=== PATIENT | male | born 1960 | race Caucasian/White ===

== ENCOUNTER → 2018-03-13 | Outpatient (CLI) | payer MEDICARE ==
[~2018-03-13] MED LIST: CYCL10TA45 PO; HYDR-3454 PO; HYDR-3816 PO; METR500T PO
--- NOTE | 2018-03-13 13:33 | Diagnostic Imaging Report ---
CLINICAL INDICATION: Patient with transient vision loss in the right eye. COMPARISON: None. EXAM: Real-time carotid Doppler duplex imaging is performed bilaterally. Peak systolic velocity, ICA/CCA peak systolic ratio, spectral analysis, and vascular morphology are studied. FINDINGS: ARTERY VELOCITY Right Left CCA 1.09 m/s 1.22 m/s ICA 1.08 m/s 0.95 m/s ECA 1.49 m/s 1.05 m/s ICA/CCA 1.0 0.8 VERT.ART Antegrade Antegrade There is mild atherosclerotic disease involving the bilateral carotid arteries with no grayscale evidence of significant stenosis. Although, there is elevated velocities within the right ECA, there is no grayscale evidence of stenosis seen in the region. IMPRESSION: 1: There are elevated velocities within the right ECA with no grayscale evidence of stenosis. 2: Otherwise, there is mild bilateral carotid artery atherosclerotic disease. No grayscale or Doppler evidence of significant vascular stenosis. Dictated by: Dictated on workstation # [id number]
== END ==
LOC: RAD 12:50
PROVIDERS: ATTEND Family Medicine
DX: I65.23 Occlusion and stenosis of bilateral carotid arteries (principal); H53.121 Transient visual loss, right eye
CPT/HCPCS: 93880

== ENCOUNTER → 2019-06-18 | Outpatient (CLI) | payer MEDICARE ==
--- NOTE | 2019-06-18 09:59 | Diagnostic Imaging Report ---
PROCEDURE: MRI lumbar spine. TECHNIQUE: Multiplanar, multisequence MRI of the lumbar spine was performed without contrast. INDICATION: Chronic low back pain. FINDINGS: The alignment of the lumbar spine is normal. Vertebral body heights are well-maintained. There is no spondylolysis or spondylolisthesis. No fractures are identified. Conus medullaris is seen at L1. The patient has a congenitally small spinal canal. At T12-L1 there is no spinal or neural foraminal encroachment. At L1-L2 there is mild facet disease and some minimal annular bulging. There is very slight effacement of the ventral thecal sac and no significant neural foraminal encroachment. At L2-L3 there is some annular bulging, facet disease and thickening of the ligamentum flavum. There is mild central spinal stenosis and very minimal neural foraminal encroachment. At L3-L4 there is loss of disc height and signal intensity. There is some annular bulging, facet disease and thickening of the ligamentum flavum. There is moderate spinal stenosis with some encroachment upon the lateral recess bilaterally. There is mild bilateral neural foraminal encroachment. At L4-L5 there is loss of disc height and signal intensity. There are Modic changes in the endplates. There is annular bulging, facet disease and thickening of the ligamentum flavum. There is severe central spinal stenosis with marked encroachment upon the lateral recess bilaterally. There is moderately severe right and moderate left neural foraminal encroachment. At L5-S1 there is broad-based annular bulging and facet disease. There is marked encroachment upon the left lateral recess. There is mild right and moderately severe left neural foraminal encroachment. The aorta is nonaneurysmal. Kidneys are normal in appearance. IMPRESSION: Lower lumbar spondylosis and multilevel degenerative disc disease as detailed above. Dictated by: Dictated on workstation # [id number]
== END ==
LOC: RAD 07:52
PROVIDERS: ATTEND Family Medicine
DX: M47.816 Spondylosis without myelopathy or radiculopathy, lumbar region (principal); M51.26 Other intervertebral disc displacement, lumbar region; M51.36 Other intervertebral disc degeneration, lumbar region
CPT/HCPCS: 72148

== ENCOUNTER → 2019-06-29 | Outpatient (CLI) | payer MEDICARE ==
--- NOTE | 2019-06-29 12:01 | Diagnostic Imaging Report ---
EXAMINATION: Right lower extremity arterial Doppler. INDICATION: Numbness and tingling in right foot. TECHNIQUE: Spectral and color-flow imaging of the arterial system of the right lower extremity was performed. COMPARISON: There are no prior studies available for comparison. FINDINGS: There is fairly good arterial blood flow throughout the right lower extremity. Triphasic waveforms were seen in the common femoral, superficial femoral, popliteal, and proximal peroneal arteries. Biphasic waveforms were seen in the posterior tibial and dorsalis pedis arteries. There is no abrupt alteration of the velocities to suggest a hemodynamically significant stenosis. IMPRESSION: There is no evidence for a hemodynamically significant stenosis of the arterial system of the right lower extremity. Dictated by: Dictated on workstation # [id number]
== END ==
LOC: RAD 09:26
PROVIDERS: ATTEND Family Medicine
DX: R20.2 Paresthesia of skin (principal); R20.0 Anesthesia of skin
CPT/HCPCS: 93926

== ENCOUNTER → 2022-09-06 | Outpatient (CLI) | payer MEDICARE ==
--- NOTE | 2022-09-06 12:45 | Diagnostic Imaging Report ---
CT Lung Screening INDICATION: Current smoker with a 66 pack year history. No current complaint. TECHNIQUE: Noncontrast, low-dose CT imaging performed according to lung cancer screening protocol. Auto Exposure Controls were utilized during the CT exam to meet ALARA standards for radiation dose reduction. COMPARISON: None FINDINGS: HEART/MEDIASTINUM: Upper limits of normal with prominent coronary calcification. Thoracic aortic contour unremarkable. No suggestion for pathologically enlarged mediastinal lymph nodes on limited, noncontrast imaging. LUNGS/MEASURED PULMONARY NODULES: Mild bronchial wall thickening. No pulmonary infiltrate. No effusion. Image 33 series 2, 6 x 5 x 5 mm solid nodule, slightly spiculated medial right upper lobe. OTHER: Partial visualization ACDF hardware. Bridging osteophytes thoracic spine with mild advanced degenerative change. IMPRESSION: 1. Small solid partial spiculated nodule medial right upper lobe. LUNG-RADS CATEGORY: 3 LUNG SCREENING MANAGEMENT/RECOMMENDATIONS: Short-term follow-up low-dose CT chest in 6 months. Dictated by: Dictated on workstation # [id number]
== END ==
LOC: RAD 07:52
PROVIDERS: ATTEND Family Medicine
DX: Z12.2 Encounter for screening for malignant neoplasm of respiratory organs (principal); R91.1 Solitary pulmonary nodule; F17.200 Nicotine dependence, unspecified, uncomplicated
CPT/HCPCS: 71271